=== PATIENT | female | born 1970 | race Hispanic/Latino ===

== ENCOUNTER 2022-08-09 16:00 | Emergency (ER) | payer MEDICAID, OTHER ==
[~2022-08-09] VITALS: Ht 154.9 cm; Wt 60.3 kg
[2022-08-09] MEDS ORDERED: KETOROLAC 30MG VIAL (30MG/ML) IM ONE (17:00)
[2022-08-09] MEDS ORDERED: ONDANSETRON 4MG INJ IVP ONE (17:00)
[2022-08-09] MEDS ORDERED: ACETAMINOPHEN 500 MG TABLET PO ONE (17:00)
[2022-08-09 17:06] LABS: BASOPHILS % (AUTO) 0.3 % (0.0-5.0); HEMATOCRIT 38.2 % (36-48); LYMPHOCYTES % (AUTO) 7.9 % (21.0-51.0); MEAN CORPUSCULAR HEMOGLOBIN 29.9 pg (27.0-33.0); MEAN CORPUSCULAR HGB CONC 35.1 g/dL (32.0-36.0); MEAN CORPUSCULAR VOLUME 85.3 fL (79-99); MONOCYTES % (AUTO) 6.1 % (3.0-13.0); NEUTROPHILS % (AUTO) 85.1 % (40.0-77.0); PLATELET COUNT (AUTO) 294 K/uL (130-400); RED BLOOD CELL COUNT(AUTO) 4.48 MIL/uL (4.00-5.50); RED CELL DISTRIBUTION WIDTH 12.3 % (11.0-15.5); WHITE BLOOD COUNT (AUTO) 10.8 K/uL (4.8-10.8)
[2022-08-09 17:09] LABS: APPEARANCE,URINE CLEAR (CLEAR); BILIRUBIN,URINE NEGATIVE (NEGATIVE); COLOR,URINE YELLOW (YELLOW); GLUCOSE, URINE (UA) NEGATIVE (NEGATIVE); KETONES,URINE NEGATIVE (NEGATIVE); LEUKOCYTE ESTERASE ,URINE NEGATIVE Leu/uL (NEGATIVE); NITRATE,URINE NEGATIVE (NEGATIVE); OCCULT BLOOD,URINE NEGATIVE (NEGATIVE); PH,URINE 8.5 (5.0-8.0); PROTEIN,URINE 50 mg/dL (NEGATIVE); UROBILINOGEN,URINE 3 mg/dL (0.2-1.0)
[2022-08-09 17:14] LABS: MUCUS,URINE RARE LPF (None Seen); SQUAMOUS EPITHELIAL CELL,UR MOD /HPF (0-2)
[2022-08-09 17:15] LABS: HCG,QUALITATIVE URINE NEGATIVE (NEGATIVE)
[2022-08-09 17:17] LABS: CREATININE 0.7 mg/dL (0.5-1.5); POTASSIUM 3.5 mmol/L (3.5-5.1)
[2022-08-09 17:22] LABS: ALBUMIN 3.7 g/dL (3.5-5.0); TOTAL PROTEIN, SERUM 7.9 g/dL (6.0-8.3)
[2022-08-09] MEDS ORDERED: 0.9%NACL 1000ML 1,000 ML IV SCH (17:30)
[2022-08-09 18:38] VITALS: BP 106/68
[2022-08-09] MEDS ORDERED: ONDA4TAB10 PO (19:02)
== END 2022-08-09 19:18 | disposition home or self-care (01) ==
LOC: EDH 16:00
DX: G43.909 Migraine, unspecified, not intractable, without status migrainosus (principal); R11.2 Nausea with vomiting, unspecified; B34.9 Viral infection, unspecified; Z20.822 Contact with and (suspected) exposure to COVID-19
CPT/HCPCS: 99284; 96360; 96374; 87635; 84484; 80053; 85025; 87040 ×2; 87880; 87804 ×2; 83605; 81001; 81025; 36415; 93005; 96372; C9803; J7030; J2405; J1885